=== PATIENT | male | born 1950 | race Caucasian/White ===

== ENCOUNTER 2018-10-07 10:44 | Inpatient (IN) ==
[2018-10-07] MEDS ORDERED: MoRPHine SULFATE 4 MG/ML 1 ML CARP\\VIAL IV STA (11:19)
[2018-10-07] MEDS ORDERED: SODIUM CHLORIDE 0.9% 500 ML IV SCH (11:30)
[2018-10-07 11:51] LABS: iSTAT Hemoglobin 14.3 g/dl (14.0-18.0); iSTAT Ionized Calcium 1.15 mmol/l (1.12-1.32); iSTAT Potassium 3.7 mEq/L (3.3-5.0)
[2018-10-07] MEDS ORDERED: IOVERSOL 100ml IV PRN (12:07)
[2018-10-07 12:08] LABS: Albumin Level 3.4 gm/dl (3.4-5.0); Calcium 8.5 mg/dl (8.5-10.1); Creatinine Clr Calc Pharmacy 92.1 ml/min; Est GFR (African American) 89.2; Potassium 3.6 mmol/L (3.5-5.1)
[2018-10-07 12:11] LABS: Albumin Globulin Ratio 0.9 (0.9-2); Bilirubin,Total 0.7 mg/dl (0.2-1); Globulin 3.9 gm/dl (2.5-4.0); Total Protein 7.3 gm/dl (6.4-8.2)
[2018-10-07 12:19] LABS: Basophils # (auto) 0.01 K/uL (0-0.2); Basophils % (auto) 0.1 %; Eosinophils # (auto) 0.04 K/uL (0-0.5); Eosinophils % (auto) 0.4 %; Hematocrit (blood only) 42.3 % (42-52); Hemoglobin 14.2 g/dL (14.0-18.0); Immature Granulocytes # (auto) 0.01 K/uL (0.00-0.02); Immature Granulocytes % (auto) 0.1 %; Lymphocytes # (auto) 1.53 K/uL (1.2-3.4); Lymphocytes % (auto) 16.3 %; Mean Corpuscular Hgb Conc 33.6 g/dL (32-36); Mean Corpuscular Volume 96.4 fL (80-100); Mean Platelet Volume 10.9 fL (7.4-10.4); Monocytes # (auto) 0.63 K/uL (0.11-0.59); Monocytes % (auto) 6.7 %; Neutrophils # (auto) 7.14 K/uL (1.4-6.5); Neutrophils % (auto) 76.4 %; Platelet Count 224 K/uL (130-400); RDW Coefficient of Variation 13.8 % (11.5-14.5); RDW Standard Deviation 49.1 fL (36.4-46.3); Red Blood Count 4.39 M/uL (4.7-6.1); White Blood Count 9.36 K/uL (4.8-10.8)
--- NOTE | 2018-10-07 12:21 | CT Scan Report ---
CT head/brain wo con CLINICAL HISTORY: Head pain status post trauma COMPARISON STUDY: No previous studies for comparison. TECHNIQUE: Axial CT of the brain is performed from the vertex to the skull base. IV contrast was not administered for this examination. A dose lowering technique was utilized adhering to the principles of ALARA. CT DOSE: FINDINGS: No intra or extra-axial mass lesions are visualized. There is no CT evidence of acute cortical infarc tion. There is no evidence of midline shift. There is no acute hemorrhage. No calvarial fractures ar e visualized. There are moderate white matter hypodensities likely on a small vessel basis. There is an old lacunar infarct within the left frontal lobe. There is no evidence of pathologic ventricular dilatation. There is no evidence of acute sinusitis IMPRESSION: No acute intracranial findings Electronically signed by: Hussain Adames M.D. 10/07/2018 12:20 PM
--- NOTE | 2018-10-07 12:23 | CT Scan Report ---
CT OF THE CERVICAL SPINE CLINICAL HISTORY: Neck pain status post trauma COMPARISON STUDY: No previous studies for comparison. CT DOSE: TECHNIQUE: CT scan of the cervical spine was performed from the skull base to the thoracic inlet. Elvie ges are reviewed in the axial, sagittal, and coronal planes. IV contrast was not administered for thi s examination. A dose lowering technique was utilized adhering to the principles of ALARA. FINDINGS: The visualized portions of the lung apices reveal no evidence of pneumothorax. The prevertebral soft tissues are normal. No fractures or subluxations are visualized. There are multilevel degenerative changes IMPRESSION: No evidence of acute fracture or traumatic subluxation. Electronically signed by: Hussain Adames M.D. 10/07/2018 12:21 PM
--- NOTE | 2018-10-07 12:30 | CT Scan Report ---
CT OF THE CHEST WITH IV CONTRAST CLINICAL HISTORY: Chest pain status post trauma COMPARISON STUDY: No previous studies for comparison. TECHNIQUE: Following the IV administration of 1611/and 22 (! 9360 09/27/2019. mL of Optiray-320, CT o f the thorax was performed from the thoracic inlet to the lung bases. Images are reviewed in the axia l, sagittal, and coronal planes. IV contrast was administered without complication. A dose lowering technique was utilized adhering to the principles of ALARA. CT DOSE: 3641.42 mGy.cm FINDINGS: Thyroid: Imaged portions of the thyroid gland are normal in appearance. Thoracic aorta: There is mild ectasia of the ascending thoracic aorta which measures 38 mm. There are no findings to indicate an aortic dissection or rupture. Pulmonary vasculature: The pulmonary trunk is normal in caliber. There are no central filling defects identified to suggest pulmonary embolus. Note that this examination was not protocoled for the evalu ation of pulmonary emboli. HEART: The heart is normal in size and configuration, without pericardial effusion. Lungs and pleural spaces: There are no significant pleural effusions. There are mild dependent atelec tatic changes. There is no pneumothorax. There is no evidence for focal pulmonary contusion. Mediastinum: There is no mediastinal lymphadenopathy. Pita: Left hilar lymph nodes are the upper limits of normal in size. Axilla: There is no evidence of pathologic axillary lymphadenopathy Upper abdomen: Partially visualized upper abdominal viscera is within normal limits. Skeletal structures: There are acute nondisplaced fractures of the right sixth, seventh, and eighth r ibs laterally. There are acute nondisplaced fractures of the left fourth through eighth ribs laterall y IMPRESSION: 1. Acute nondisplaced fractures of the right sixth seventh and eighth ribs 2. Acute nondisplaced fractures of the left fourth through eighth ribs 3. No evidence of pneumothorax 4. No evidence of focal pulmonary contusion 5. No evidence of thoracic aortic injury Electronically signed by: Hussain Adames M.D. 10/07/2018 12:28 PM
--- NOTE | 2018-10-07 12:34 | CT Scan Report ---
CT OF THE ABDOMEN AND PELVIS WITH CONTRAST CLINICAL HISTORY: Fall. COMPARISON STUDY: None. TECHNIQUE: Following IV administration of 93 mL of Optiray-320, axial images of the abdomen and pelvi s were obtained from the lung bases to the proximal femurs. Images were reviewed in the axial, sagitt al, and coronal planes. IV contrast was administered without complication. Automated exposure contro l was utilized for the study. A dose lowering technique was utilized adhering to the principles of A HAVEN. FINDINGS: Please note that the chest CT will be reported separately. Acute nondisplaced fractures of multiple bilateral anterolateral ribs are better depicted on the chest CT. No hemoperitoneum or pneum operitoneum is present. There is no evidence for traumatic injury to the liver, spleen, adrenal gland s, kidneys or the pancreas. There is no peripancreatic or pericholecystic infiltration. Caliber and w all thickness of small and large bowel is normal. The appendix is unremarkable. Previous left acetabu lar internal fixation is noted. There is no acute fracture within the pelvis or hips. There is a righ t thigh lipoma. There are bilateral fat-containing inguinal hernias. Mild bladder wall thickening is probably chronic. The infrarenal abdominal aorta is ectatic, measuring 2.7 cm in caliber. There is mo derate plaque. IMPRESSION: 1. No acute traumatic findings within the abdomen or pelvis. 2. Acute nondisplaced fractures of multiple bilateral anterolateral ribs which are better depicted on the chest CT. Electronically signed by: Ricardo Gunn M.D. 10/07/2018 12:32 PM
--- NOTE | 2018-10-07 14:08 | History & Physical Report ---
Date of Service October 07, 2018 Assessment & Plan (1) Multiple fractures of ribs of both sides: Pt with fall from ladder approx 8-10 feet high yesterday. Since with bilateral rib pain, increased with inspiration and movement In ER vitals stable, pulse ox: 93-95% on RA. Hgb: 14, BUN: 12, Cr: 1.0. CT head: no acute changes. CT C Spine: no acute fractures. CT Chest: nondisplaced fractures of right 6,7,8 ribs and nondisplaced fractures of left 4- 8 ribs. No pneumothorax or pulmonary contusion, no thoracic injury. CT abd/pelvis: no acute abdominal or pelvis findings. Spoke with radiologist to have look at lumbar spine images also and reports does not appear to have acute fracture In ER was given 500ml NSS and morphine 4mg with some relief of pain -observation for pain control -oxycodone prn pain, morphine for breakthrough pain -incentive spirometer -supplemental oxygen if needed (2) COPD (chronic obstructive pulmonary disease): Hx COPD. Did not use inhalers today. Pt reports chronic wheezing and does not feel has worsening SOB or wheezing Pt with wheezing present today, will see if clears with nebs -duonebs -will hold home spiriva since on duonebs -monitor (3) HTN (hypertension): -continue losartan, metoprolol (4) Dyslipidemia: -continue atorvastatin (5) PVD (peripheral vascular disease): -continue ASA, plavix (6) Lymphedema: Reported chronic BLE edema and lymphedema Appears euvolemic -continue lasix (7) Anxiety and depression: -continue bupropion, sertraline DVT Prophylaxis -SCDs Full Code as per discussion with pt Follows with Dr [facility] for routine care Pt was seen with Dr Gomez. See addendum History of Present Illness Chief Complaint: Fall and bilateral rib pain Primary Care Provider: Malachi Steve Pt is 68 y/o M with PMH COPD, HTN, dyslipidemia, PVD, chronic lower extremity edema and lymphedema, neuropathy, spinal stenosis, anxiety, depression presented to ER with complaint of fall yesterday. Patient states was on a ladder approximately 8-10 feet when he fell backwards. Patient states that head however denies any LOC. Patient states after fall had a hard time catching his breath for a couple minutes. He has bilateral rib pain with increased pain with inspiration. Doesn't feel more short of breath than usual. Patient also complains of posterior neck pain. Pt reports chronic low back pain. He was using his home meloxicam without much relief. Denies fever/chills, diaphoresis, N/V/D/C, ARENAS, dizziness, syncope, vision changes, extremity pain, loss ROM extremities, palpitations, cough, sore throat, choking, otalgia, rhinorrhea, abdominal pain, paresthesias, extremity weakness, increased extremity edema, rashes, dysuria, hematuria, urinary retention, loss control of bowel/bladder. Allergies Allergy/AdvReac Type Severity Reaction Status Date / Time lisinopril Allergy Unknown Rash Verified 10/07/18 14:40 Penicillins Allergy Unknown UNKNOWN Unverified 10/07/18 13:24 tramadol AdvReac Unknown Nausea Verified 10/07/18 14:40 Home Medications Home Medications Medication Instructions Recorded Confirmed Type albuterol sulfate [Ventolin HFA] 2 puff INHALATION QID PRN 10/07/18 10/07/18 History aspirin 81 mg PO DAILY 10/07/18 10/07/18 History atorvastatin 40 mg PO HS 10/07/18 10/07/18 History bupropion HCl [Wellbutrin XL] 300 mg PO QAM 10/07/18 10/07/18 History clopidogrel [Plavix] 75 mg PO QAM 10/07/18 10/07/18 History furosemide [Lasix] 40 mg PO BID 10/07/18 10/07/18 History losartan 25 mg PO QAM 10/07/18 10/07/18 History meloxicam 15 mg PO QAM 10/07/18 10/07/18 History metoprolol tartrate 12.5 mg PO BID 10/07/18 10/07/18 History multivitamin 1 cap PO QAM 10/07/18 10/07/18 History potassium chloride 20 meq PO QAM 10/07/18 10/07/18 History ranitidine HCl 150 mg PO BID 10/07/18 10/07/18 History sertraline 200 mg PO QAM 10/07/18 10/07/18 History tiotropium bromide [Spiriva with 1 cap INHALATION QAM 10/07/18 10/07/18 History HandiHaler] trazodone 50 mg PO HS 10/07/18 10/07/18 History vit C-vit Y-ataknt-wimh-lutein 1 cap PO BID 10/07/18 10/07/18 History [PreserVision Lutein] Past Med/Surg History Medical History Tobacco use (Chronic) History of pelvic fracture (Resolved) Anxiety and depression (Chronic) Spinal stenosis (Chronic) Neuropathy (Chronic) Lymphedema (Chronic) PVD (peripheral vascular disease) (Chronic) COPD (chronic obstructive pulmonary disease) (Chronic) Dyslipidemia (Chronic) HTN (hypertension) (Chronic) HTN (hypertension) (Chronic) Pelvic fracture (Resolved) Surgical History History of hemorrhoidectomy (Chronic) History of tonsillectomy and adenoidectomy (Chronic) Family History Other Coronary heart disease Diabetes Hypertension Stroke Social History Preferred Language: [place]i Communication Ability: Effective Beliefs That Will Affect Care: None Current Living Situation: Spouse Other Information That Helps Us Care for You: No Feels Safe at Home: Yes Safety Concerns: Feels Safe At This Time Smoking Status: Current every day smoker Hx Alcohol Use: Yes Hx Substance Use: No Review of Systems All systems reviewed & are unremarkable except as noted in HPI & below Physical Exam Vital Signs (Past 24 Hours): Last Vital Signs Temp 36.4 C L 10/07/18 10:50 Pulse 54 L 10/07/18 13:42 Resp 20 10/07/18 13:42 BP 139/85 10/07/18 13:42 Pulse Ox 93 10/07/18 13:42 Physical Exam: General: mild distress with deep inspiration and movement causing bilateral rib pain, obese Head: normocephalic, atraumatic Eyes: PERRL, EOM's intact, conjunctiva non-injected, anicteric ENT: hard of hearing, normal inspection external ears, nose, mucous membranes moist Neck: supple, trachea midline, non-tender to palpation, ROM intact Lungs: no respiratory distress, R: 20, 93-95% on RA, +scattered wheezing CV: RRR, no murmur Abd: normal BS, soft, non-tender Back: no spinous process tenderness to palpation, negative straight leg raising Ext: Bilateral upper extremities without tenderness and ROM intact. Bilateral lower extremities without tenderness and ROM intact, no calf tenderness, mild edema bilateral lower extremities. distal pulses intact, brisk capillary refill, sensation to light touch intact Neuro: A&O x 3, no focal deficits noted, normal affect Skin: warm, dry Results & Data Laboratory Results Short CBC 10/07/18 Range/Units 11:30 WBC 9.36 (4.8-10.8) K/uL Hgb 14.2 (14.0-18.0) g/dL Hct 42.3 (42-52) % Plt Count 224 (130-400) K/uL BMP 10/07/18 11:30 Sodium 138 Potassium 3.6 Chloride 104 Carbon Dioxide 30 BUN 12 Creatinine 1.00 Glucose 108 H Calcium 8.5 Liver Function 10/07/18 Range/Units 11:30 Total Bilirubin 0.7 (0.2-1) mg/dl AST 24 (15-37) U/L ALT 32 (12-78) U/L Alkaline Phosphatase 117 (45-117) U/L Albumin 3.4 (3.4-5.0) gm/dl Diagnostic Findings CT HEAD: IMPRESSION: No acute intracranial findings CT C-SPINE: IMPRESSION: No evidence of acute fracture or traumatic subluxation. CT CHEST: IMPRESSION: 1. Acute nondisplaced fractures of the right sixth seventh and eighth ribs 2. Acute nondisplaced fractures of the left fourth through eighth ribs 3. No evidence of pneumothorax 4. No evidence of focal pulmonary contusion 5. No evidence of thoracic aortic injury CT ABD/PELVIS: IMPRESSION: 1. No acute traumatic findings within the abdomen or pelvis. 2. Acute nondisplaced fractures of multiple bilateral anterolateral ribs which are better depicted on the chest CT. ECG Rate (beats per minute): 60 Rhythm: sinus rhythm Findings: + 1st degree AV block Supervising Physician Co-Signing Physician Notes Care coordinated with Zeinab MCDONALD. Agree with able note. Patient seen and examined. Please refer to her notes for full details. Vital signs reviewed. Physical exam: General exam: Alert and oriented. Not in acute distress. CVS: S1 and S2 heard, regular rate and rhythm, no murmurs. RS: Clear to auscultation, mild b/l wheezing no crackles. ABD: Soft, bowel sounds present, nontender, no distention. CUT OFF SAW TENDER METAL: Nonfocal. EXT: No edema, no erythema. Labs: Reviewed. Assessment and plan:68M comes with fall from ladder yesterday and pain in the chest more with deep breath and back and hip pains.Saturating ok and hemodynamically stable. Fall mechanical multiple rib fx no pneumothorax or lung injury pain control incentive spirometry pt/ot observation Hx of copd stable nebs prn Other diagnosis and plan of care as per []. French gill MD. (1) Multiple fractures of ribs of both sides Encounter type: initial encounter Fracture type: closed Qualified Code(s): S22.43XA - Multiple fractures of ribs, bilateral, initial encounter for closed fracture
--- NOTE | 2018-10-07 14:10 | Emergency Department Note ---
Entered by Khushbu Mathew acting as a scribe for History of Present Illness General Chief complaint: Neck Injury/Pain Time Seen by Provider: 10/07/18 11:10 Source: patient History of Present Illness Provider complaint: fall Onset (ago): day(s) (yesterday afternoon) Location: left and right Pain Consistency: + other (episode) Maximum Pain Intensity: 5 Quality: + other (fall) Associated symptoms: + other (neck pain, extremity weakness, fatigue, chest pain, abdominal pain. Denies: loss of consciousness, headache, vision difficulties, dental pain) The patient is a 68 year old male who presents to the Emergency Room with compla ints of an episode of a fall beginning yesterday afternoon. He reports he lost his footing while on a ladder, and fell about 8-10 ft. The patient states he landed backwards and hit his head. The patient denies loss of consciousness, headache, vision difficulties, or dental pain. He reports neck pain and weakness of his extremities. The patient states he is easily fatigued since the fall. He notes pain on both sides of his chest. The patient reports abdominal pain. Home Medications Home Medications Medication Instructions Recorded Confirmed Type albuterol sulfate [Ventolin HFA] 2 puff INHALATION QID PRN 10/07/18 10/07/18 History aspirin 81 mg PO DAILY 10/07/18 10/07/18 History atorvastatin 40 mg PO HS 10/07/18 10/07/18 History bupropion HCl [Wellbutrin XL] 300 mg PO QAM 10/07/18 10/07/18 History clopidogrel [Plavix] 75 mg PO QAM 10/07/18 10/07/18 History furosemide [Lasix] 40 mg PO BID 10/07/18 10/07/18 History losartan 25 mg PO QAM 10/07/18 10/07/18 History meloxicam 15 mg PO QAM 10/07/18 10/07/18 History metoprolol tartrate 12.5 mg PO BID 10/07/18 10/07/18 History multivitamin 1 cap PO QAM 10/07/18 10/07/18 History potassium chloride 20 meq PO QAM 10/07/18 10/07/18 History ranitidine HCl 150 mg PO BID 10/07/18 10/07/18 History sertraline 200 mg PO QAM 10/07/18 10/07/18 History tiotropium bromide [Spiriva with 1 cap INHALATION QAM 10/07/18 10/07/18 History HandiHaler] trazodone 50 mg PO HS 10/07/18 10/07/18 History vit C-vit V-khzknz-xdpe-lutein 1 cap PO BID 10/07/18 10/07/18 History [PreserVision Lutein] Allergies Allergy/AdvReac Type Severity Reaction Status Date / Time lisinopril Allergy Unknown Rash Verified 10/07/18 14:40 Penicillins Allergy Unknown UNKNOWN Unverified 10/07/18 13:24 tramadol AdvReac Unknown Nausea Verified 10/07/18 14:40 Past Med/Surg History Medical History Tobacco use (Chronic) History of pelvic fracture (Resolved) Anxiety and depression (Chronic) Spinal stenosis (Chronic) Neuropathy (Chronic) Lymphedema (Chronic) PVD (peripheral vascular disease) (Chronic) COPD (chronic obstructive pulmonary disease) (Chronic) Dyslipidemia (Chronic) HTN (hypertension) (Chronic) HTN (hypertension) (Chronic) Pelvic fracture (Resolved) Surgical History History of hemorrhoidectomy (Chronic) History of tonsillectomy and adenoidectomy (Chronic) Family History Other Coronary heart disease Diabetes Hypertension Stroke Social History Feels Safe at Home: Yes Smoking Status: Current every day smoker Hx Alcohol Use: Yes Hx Substance Use: Yes Review of Systems See HPI for pertinent positives & negatives. and A total of 10 systems reviewed and were otherwise negative Physical Exam Vital Signs Vital Signs - 24 hr 10/07/18 10:50 10/07/18 11:31 10/07/18 13:42 Temperature 36.4 C L Temperature Source Oral Sepsis Recent Fever Within 48 Hours No Sepsis Action Taken by Nursing No Action Required Pulse Rate 65 Pulse Rate [Right Finger] 65 54 L Pulse Rhythm Regular Pulse Rhythm [Right Finger] Regular Pulse Strength Normal Pulse Strength [Right Finger] Normal Respiratory Rate 22 20 Respiratory Effort / Characteristics Short of Breath Respiratory Depth Normal Respiratory Pattern Regular Blood Pressure 150/81 H Blood Pressure [Right Arm] 150/81 H 139/85 Blood Pressure Mean 104 Blood Pressure Mean [Right Arm] 104 103 Blood Pressure Position Lying Blood Pressure Position [Right Arm] Lying Pulse Oximetry 93 95 93 Oxygen Delivery Method Room Air Room Air Room Air 10/07/18 14:40 10/07/18 14:57 10/07/18 16:06 Temperature Temperature Source Oral Sepsis Recent Fever Within 48 Hours Sepsis Action Taken by Nursing Pulse Rate Pulse Rate [Right Finger] 56 L 59 L 59 L Pulse Rhythm Pulse Rhythm [Right Finger] Pulse Strength Pulse Strength [Right Finger] Respiratory Rate 20 20 21 Respiratory Effort / Characteristics Respiratory Depth Respiratory Pattern Blood Pressure Blood Pressure [Right Arm] 137/77 121/77 141/84 H Blood Pressure Mean Blood Pressure Mean [Right Arm] 97 91 103 Blood Pressure Position Blood Pressure Position [Right Arm] Sitting Pulse Oximetry 96 94 90 Oxygen Delivery Method Room Air Room Air Room Air General: Well developed well nourished, appears uncomfortable, breathing comfortably on room air. Normal speech. Glascow coma score of 15 HEENT: Normal cephalic atraumatic. Pupils are equal round and reactive to light. Extraocular movements are intact. Oropharynx is pink with moist mucous membranes. No swelling of the mouth lips or tongue. No hyphema. No blood from the nose or septal hematoma. Mid face is stable. No dental trauma or malocclus ion. Neck: No meningeal signs or stiffness. No midline tenderness. No Stridor. Chest: Clear to auscultation bilaterally. No wheezes or rhonchi. No increased work of breathing. No subcutaneous air. No external signs of trauma. Tender anteriorly in right and left chest without crepitus Heart: Regular rate and rhythm without murmurs or gallops. Abdomen: Soft nontender, nondistended without rebound guarding or rigidity. No seatbelt dna or external signs of trauma Extremities: No cyanosis clubbing or edema. No calf tenderness or asymmetry. Spine/Back. Non tender to palpation. No CVA tenderness. Skin: Good turgor without rashes. Neurologic exam: Cranial nerves two through 12 are intact. Motor and sensation are intact and symmetrical throughout. Normal level of consciousness Course 1112: Past medical records reviewed. The patient was evaluated in room C5, and a complete history and physical examination were performed. 1220: Upon reevaluation, the patient is resting. I discussed test results. They verbalized agreement with the treatment plan. 1249: I reviewed the patient's case with Mandi Aldana PA-C, [facility] hospitalist. She will evaluate the patient for further management. Consultations Consultation #1[facility]: 12:49 Administered Medications Ioversol (Optiray 320 100ml) 93 ml IV ONCE PRN PRN Reason: Interaction Checking Stop: 10/11/18 12:06 Last Admin: 10/07/18 12:07 Dose: 93 ml Documented by: [id number] Discontinued Medications Sodium Chloride (Nss) 500 mls @ 999 mls/hr IV .Q31M NANCY Stop: 10/07/18 12:00 Last Infusion: 10/07/18 12:25 Dose: 0 mls/hr Documented by: [id number] Admin: 10/07/18 11:47 Dose: 999 mls/hr Documented by: [id number] Morphine Sulfate (Morphine Sulfate) 4 mg IV NOW STA Stop: 10/07/18 11:20 Last Admin: 10/07/18 11:47 Dose: 4 mg Documented by: [id number] Medical Decision Making Differential Diagnosis Etiologies considered include rib fracture, pneumothorax, intracranial hemorrhage, cervical spine fracture, traumatic injuries. Medical Records Attestation: I reviewed the patient's medical records. Home Medications Current Medication List: was personally reviewed by me Laboratory Data Attestation: I reviewed the patient's lab results. Result diagrams: 10/07/18 11:30 10/07/18 11:30 Lab Results 10/07/18 10/07/18 10/07/18 Range/Units 11:30 11:30 11:39 WBC 9.36 (4.8-10.8) K/uL RBC 4.39 L (4.7-6.1) M/uL Hgb 14.2 (14.0-18.0) g/dL POC Hgb 14.3 (14.0-18.0) g/dl Hct 42.3 (42-52) % POC Hct 42 (42-52) % MCV 96.4 (80-100) fL MCH 32.3 (25-34) pg MCHC 33.6 (32-36) g/dL RDW Std Deviation 49.1 H (36.4-46.3) fL RDW Coeff of Britton 13.8 (11.5-14.5) % Plt Count 224 (130-400) K/uL MPV 10.9 H (7.4-10.4) fL Immature Gran % (Auto) 0.1 % Neut % (Auto) 76.4 % Lymph % (Auto) 16.3 % [place]ern % (Auto) 6.7 % Eos % (Auto) 0.4 % Baso % (Auto) 0.1 % Immature Gran # (Auto) 0.01 (0.00-0.02) K/uL Neut # (Auto) 7.14 H (1.4-6.5) K/uL Lymph # (Auto) 1.53 (1.2-3.4) K/uL [place]ern # (Auto) 0.63 H (0.11-0.59) K/uL Eos # (Auto) 0.04 (0-0.5) K/uL Baso # (Auto) 0.01 (0-0.2) K/uL POC Sodium 141 (135-144) mEq/L Sodium 138 (136-145) mmol/L POC Potassium 3.7 (3.3-5.0) mEq/L Potassium 3.6 (3.5-5.1) mmol/L POC Chloride 100 L (101-112) mEq/L Chloride 104 (98-107) mmol/L Carbon Dioxide 30 (21-32) mmol/L POC Total CO2 28 (24-31) mEq/l Anion Gap 4.0 (3-11) POC Anion Gap 18.0 (16-25) mmol/L POC BUN 11 (7-18) mg/dl BUN 12 (7-18) mg/dl Creatinine 1.00 (0.6-1.4) mg/dl POC Creatinine 1.0 (0.6-1.3) mg/dl Est Cr Clr Drug Dosing 92.1 ml/min Est GFR ( Amer) 89.2 Est GFR (Non-Af Amer) 77.0 BUN/Creatinine Ratio 12.0 (10-20) Glucose 108 H (70-99) mg/dl POC Glucose (other) 112 H (70-99) mg/dl Calcium 8.5 (8.5-10.1) mg/dl POC Ioniz Calcium [place] 1.15 (1.12-1.32) mmol/l Total Bilirubin 0.7 (0.2-1) mg/dl AST 24 (15-37) U/L ALT 32 (12-78) U/L Alkaline Phosphatase 117 (45-117) U/L POC Troponin I (0-0.045) ng/ml Total Protein 7.3 (6.4-8.2) gm/dl Albumin 3.4 (3.4-5.0) gm/dl Globulin 3.9 (2.5-4.0) gm/dl Albumin/Globulin Ratio 0.9 (0.9-2) 10/07/18 Range/Units 11:41 WBC (4.8-10.8) K/uL RBC (4.7-6.1) M/uL Hgb (14.0-18.0) g/dL POC Hgb (14.0-18.0) g/dl Hct (42-52) % POC Hct (42-52) % MCV (80-100) fL MCH (25-34) pg MCHC (32-36) g/dL RDW Std Deviation (36.4-46.3) fL RDW Coeff of Britton (11.5-14.5) % Plt Count (130-400) K/uL MPV (7.4-10.4) fL Immature Gran % (Auto) % Neut % (Auto) % Lymph % (Auto) % [place]ern % (Auto) % Eos % (Auto) % Baso % (Auto) % Immature Gran # (Auto) (0.00-0.02) K/uL Neut # (Auto) (1.4-6.5) K/uL Lymph # (Auto) (1.2-3.4) K/uL [place]ern # (Auto) (0.11-0.59) K/uL Eos # (Auto) (0-0.5) K/uL Baso # (Auto) (0-0.2) K/uL POC Sodium (135-144) mEq/L Sodium (136-145) mmol/L POC Potassium (3.3-5.0) mEq/L Potassium (3.5-5.1) mmol/L POC Chloride (101-112) mEq/L Chloride (98-107) mmol/L Carbon Dioxide (21-32) mmol/L POC Total CO2 (24-31) mEq/l Anion Gap (3-11) POC Anion Gap (16-25) mmol/L POC BUN (7-18) mg/dl BUN (7-18) mg/dl Creatinine (0.6-1.4) mg/dl POC Creatinine (0.6-1.3) mg/dl Est Cr Clr Drug Dosing ml/min Est GFR ( Amer) Est GFR (Non-Af Amer) BUN/Creatinine Ratio (10-20) Glucose (70-99) mg/dl POC Glucose (other) (70-99) mg/dl Calcium (8.5-10.1) mg/dl POC Ioniz Calcium [place] (1.12-1.32) mmol/l Total Bilirubin (0.2-1) mg/dl AST (15-37) U/L ALT (12-78) U/L Alkaline Phosphatase (45-117) U/L POC Troponin I < 0.03 (0-0.045) ng/ml Total Protein (6.4-8.2) gm/dl Albumin (3.4-5.0) gm/dl Globulin (2.5-4.0) gm/dl Albumin/Globulin Ratio (0.9-2) Imaging Data Radiologist's Impression: Radiology results as stated below per my review and the radiologist's interpretation: CT head/brain wo con CLINICAL HISTORY: Head pain status post trauma COMPARISON STUDY: No previous studies for comparison. TECHNIQUE: Axial CT of the brain is performed from the vertex to the skull base. IV contrast was not administered for this examination. A dose lowering technique was utilized adhering to the principles of ALARA. CT DOSE: FINDINGS: No intra or extra-axial mass lesions are visualized. There is no CT evidence of acute cortical infarction. There is no evidence of midline shift. There is no acute hemorrhage. No calvarial fractures are visualized. There are moderate white matter hypodensities likely on a small vessel basis. There is an old lacunar infarct within the left frontal lobe. There is no evidence of pathologic ventricular dilatation. There is no evidence of acute sinusitis IMPRESSION: No acute intracranial findings Electronically signed by: Hussain Adames M.D. 10/07/2018 12:[address] OF THE CHEST WITH IV CONTRAST CLINICAL HISTORY: Chest pain status post trauma COMPARISON STUDY: No previous studies for comparison. TECHNIQUE: Following the IV administration of 1611/and 22 (! [id number] 09/27/2019. mL of Optiray-320, CT of the thorax was performed from the thoracic inlet to the lung bases. Images are reviewed in the axial, sagittal, and coronal planes. IV contrast was administered without complication. A dose lowering technique was utilized adhering to the principles of ALARA. CT DOSE: 3641.42 mGy.cm FINDINGS: Thyroid: Imaged portions of the thyroid gland are normal in appearance. Thoracic aorta: There is mild ectasia of the ascending thoracic aorta which measures 38 mm. There are no findings to indicate an aortic dissection or rupture. Pulmonary vasculature: The pulmonary trunk is normal in caliber. There are no central filling defects identified to suggest pulmonary embolus. Note that this examination was not protocoled for the evaluation of pulmonary emboli. HEART: The heart is normal in size and configuration, without pericardial effusion. Lungs and pleural spaces: There are no significant pleural effusions. There are mild dependent atelectatic changes. There is no pneumothorax. There is no evidence for focal pulmonary contusion. Mediastinum: There is no mediastinal lymphadenopathy. Pita: Left hilar lymph nodes are the upper limits of normal in size. Axilla: There is no evidence of pathologic axillary lymphadenopathy Upper abdomen: Partially visualized upper abdominal viscera is within normal limits. Skeletal structures: There are acute nondisplaced fractures of the right sixth, seventh, and eighth ribs laterally. There are acute nondisplaced fractures of the left fourth through eighth ribs laterally IMPRESSION: 1. Acute nondisplaced fractures of the right sixth seventh and eighth ribs 2. Acute nondisplaced fractures of the left fourth through eighth ribs 3. No evidence of pneumothorax 4. No evidence of focal pulmonary contusion 5. No evidence of thoracic aortic injury Electronically signed by: Hussain Adames M.D. 10/07/2018 12:[address] OF THE CERVICAL SPINE CLINICAL HISTORY: Neck pain status post trauma COMPARISON STUDY: No previous studies for comparison. CT DOSE: TECHNIQUE: CT scan of the cervical spine was performed from the skull base to the thoracic inlet. Images are reviewed in the axial, sagittal, and coronal planes. IV contrast was not administered for this examination. A dose lowering technique was utilized adhering to the principles of ALARA. FINDINGS: The visualized portions of the lung apices reveal no evidence of pneumothorax. The prevertebral soft tissues are normal. No fractures or subluxations are visualized. There are multilevel degenerative changes IMPRESSION: No evidence of acute fracture or traumatic subluxation. Electronically signed by: Hussain Adames M.D. 10/07/2018 12:[address] OF THE ABDOMEN AND PELVIS WITH CONTRAST CLINICAL HISTORY: Fall. COMPARISON STUDY: None. TECHNIQUE: Following IV administration of 93 mL of Optiray-320, axial images of the abdomen and pelvis were obtained from the lung bases to the proximal femurs. Images were reviewed in the axial, sagittal, and coronal planes. IV contrast was administered without complication. Automated exposure control was utilized for the study. A dose lowering technique was utilized adhering to the principles of ALARA. FINDINGS: Please note that the chest CT will be reported separately. Acute nondisplaced fractures of multiple bilateral anterolateral ribs are better depicted on the chest CT. No hemoperitoneum or pneumoperitoneum is present. There is no evidence for traumatic injury to the liver, spleen, adrenal glands, kidneys or the pancreas. There is no peripancreatic or pericholecystic infiltration. Caliber and wall thickness of small and large bowel is normal. The appendix is unremarkable. Previous left acetabular internal fixation is noted. There is no acute fracture within the pelvis or hips. There is a right thigh lipoma. There are bilateral fat-containing inguinal hernias. Mild bladder wall thickening is probably chronic. The infrarenal abdominal aorta is ectatic, measuring 2.7 cm in caliber. There is moderate plaque. IMPRESSION: 1. No acute traumatic findings within the abdomen or pelvis. 2. Acute nondisplaced fractures of multiple bilateral anterolateral ribs which are better depicted on the chest CT. Electronically signed by: Ricardo Gunn M.D. 10/07/2018 12:32 PM ECG Data Attestation: I personally reviewed and interpreted this ECG as follows: Indication: chest pain Rate (beats per minute): 60 Rhythm: normal sinus Findings: + 1st degree AV block; no PAC, no PVC, no ST depression and no ST elevation Comparison ECG Date: no prior available Blood Pressure Blood Pressure Findings: Elevated blood pressure Blood Pressure Disposition: Referred to patients primary care provider Head Trauma GCS Score: 15 MDM Narrative This patient comes in as described above. He was placed in room C5. He is here for treatment evaluation after falling off a ladder yesterday. He fell backwards. he has anterior rib pain bilaterally. he also has some neck pain. he did hit his head and has a mild headache but did not have any loss of consc iousness. There was no syncope or any recent fall off a ladder and it sounds like it was a mechanical fall. He has no significant abdominal pain. No numbness, weakness, or neurologic deficits. No low back pain. IV access established. He did appear pretty uncomfortable initially was given morphine 4 mg IV. he appears much more comfortably after this. EKG was obtained and shows no acute ischemic changes or ectopy. I did do V[place]la trauma scans including head, neck, chest ,abdomen, and pelvis. The head and neck were unremarkable as was the abdomen and pelvis. He does have multiple rib fractures which are nondisplaced with 3 on the right and 5 on the left. There is no underlying pneumothorax or pulmonary contusion. I am concerned that he does have a history of COPD and I do think he needs to be admitted/observe for pain management. I have consulted the [facility] hospitalist group as they are on for medical unassigned as his primary doctor is at the [place]. The patient and his significant other in agreement with this plan and he was admitted/observed. Impression & Plan Multiple fractures of ribs of both sides, COPD (chronic obstructive pulmonary disease), Chest pain, Acute strain of neck muscle Discharge Plan Visit Data *Final* Discharge Date/Time: 10/07/18 15:26 Chief Complaint: Neck Injury/Pain Other Complaint: Chest Pain Rib Injury/Pain ED Provider: Malachi Suárez Discharge Problem: Multiple fractures of ribs of both sides, COPD (chronic obstructive pulmonary disease), Chest pain, Acute strain of neck muscle Patient Disposition: Admitted As Inpatient Discharge Instructions Interventions: ED Discharge Assessment Last Done: 10/07/18 15:26 The scribe's documentation has been prepared under my direction and personally reviewed by me in its entirety. I confirm that the note above accurately reflects all work, treatment, procedures, and medical decision making performed by me.
[2018-10-07] MEDS ORDERED: ONDANSETRON INJ 2 MG/ML 2 ML VIAL IV PRN (16:23)
[2018-10-07] MEDS ORDERED: MoRPHine SULFATE 2 MG/ML CARP IV PRN (16:23)
[2018-10-07] MEDS: ALBUT/IPRATROP 3MG/0.5MG NEB 3 ML VIAL NEB SCH ×2 (17:15→18:00)
[2018-10-07] MEDS: OXYCODONE HCL IR 5 MG TAB (IMMEDIATE RELEASE) PO PRN (20:52)
[2018-10-07] MEDS: FUROSEMIDE 40 MG TAB PO SCH (20:53)
[2018-10-07] MEDS: CEROVITE ADV FORMULA TAB PO SCH (20:55)
[2018-10-07] MEDS: ATORVASTATIN 40 MG TAB PO SCH (20:55)
[2018-10-07 20:58] LABS: Appearance Urine Clear (Clear); Bilirubin Urine Negative (Negative); Blood Urine Negative (Negative); Color Urine Dark Yellow; Glucose Urine UA Negative (Negative); Ketones Urine Trace (Negative); Leukocyte Esterase Urine Negative (Negative); Nitrite Urine Negative (Negative); Protein Urine Negative (Negative); Specific Gravity Urine > 1.045 (1.000-1.030); Urobilinogen Urine Negative (Negative); pH Urine 5.5 (4.5-7.5)
[2018-10-07] MEDS: METOPROLOL TARTRATE 25 MG TAB PO SCH (20:58)
[2018-10-07] MEDS: TRAZODONE HCL 50 MG TAB PO SCH (21:49)
[2018-10-08] MEDS: OXYCODONE HCL IR 5 MG TAB (IMMEDIATE RELEASE) PO PRN ×3 (04:04→17:30)
[2018-10-08] MEDS: FUROSEMIDE 40 MG TAB PO SCH ×2 (07:36→17:28)
[2018-10-08] MEDS: LOSARTAN POTASSIUM 25 MG TAB PO SCH (07:36)
[2018-10-08] MEDS: BuPROPion XL 150 MG TABCR PO SCH (07:36)
[2018-10-08] MEDS: SERTRALINE HCL 100 MG TABLET PO SCH (07:37)
[2018-10-08] MEDS: ASPIRIN 81 MG ECTAB PO SCH (07:37)
[2018-10-08] MEDS: MULTIVITAMIN TAB PO SCH (07:37)
[2018-10-08] MEDS: CLOPIDOGREL BISULFATE 75 MG TAB PO SCH (07:38)
[2018-10-08] MEDS: METOPROLOL TARTRATE 25 MG TAB PO SCH ×2 (07:38→20:06)
[2018-10-08] MEDS: POTASSIUM CHLORIDE 20 MEQ TABCR PO SCH (07:39)
[2018-10-08] MEDS: ACETAMINOPHEN 325 MG TAB PO PRN (07:41)
[2018-10-08] MEDS: ALBUT/IPRATROP 3MG/0.5MG NEB 3 ML VIAL NEB SCH ×4 (07:44→20:36)
[2018-10-08 08:11] LABS: Hematocrit (blood only) 41.1 % (42-52); Hemoglobin 13.8 g/dL (14.0-18.0); Mean Corpuscular Hgb Conc 33.6 g/dL (32-36); Mean Corpuscular Volume 95.8 fL (80-100); Mean Platelet Volume 10.6 fL (7.4-10.4); Platelet Count 212 K/uL (130-400); RDW Standard Deviation 48.5 fL (36.4-46.3); Red Blood Count 4.29 M/uL (4.7-6.1); White Blood Count 8.52 K/uL (4.8-10.8)
[2018-10-08] MEDS ORDERED: TRAMADOL HCL 50 MG TABLET PO PRN (08:25)
[2018-10-08 08:38] LABS: BUN Creatinine Ratio 13.4 (10-20); Calcium 8.6 mg/dl (8.5-10.1); Creatinine Clr Calc Pharmacy 99.1 ml/min; Est GFR (African American) 97.4; Est GFR (Non-African American) 84.1; Potassium 3.6 mmol/L (3.5-5.1)
[2018-10-08] MEDS ORDERED: MAGNESIUM HYDROXIDE SUSP 30 ML UDC PO PRN (14:51)
[2018-10-08] MEDS: DOCUSATE SODIUM/SENNA 50/8.6MG TAB PO SCH (17:27)
--- NOTE | 2018-10-08 18:26 | Hospitalist Progress Note ---
Date of Service October 08, 2018 Assessment & Plan (1) Multiple fractures of ribs of both sides: Pt with fall from ladder approx 8-10 feet high yesterday. Since with bilateral rib pain, increased with inspiration and movement In ER vitals stable, pulse ox: 93-95% on RA. Hgb: 14, BUN: 12, Cr: 1.0. CT head: no acute changes. CT C Spine: no acute fractures. CT Chest: nondisplaced fractures of right 6,7,8 ribs and nondisplaced fractures of left 4- 8 ribs. No pneumothorax or pulmonary contusion, no thoracic injury. CT abd/pelvis: no acute abdominal or pelvis findings. Spoke with radiologist to have look at lumbar spine images also and reports does not appear to have acute fracture In ER was given 500ml NSS and morphine 4mg with some relief of pain Will add Ofirmev IV every 8 hours thousand milligrams for better pain control Will avoid NSAIDs as patient is taking Lasix and losartan Continue as needed oxycodone and morphine Senokot-S and milk of magnesia ordered Continue incentive spirometry Monitor closely (2) COPD (chronic obstructive pulmonary disease): Hx COPD. Patient is in mild COPD exacerbation, secondary to suboptimal bronchodilator CT chest no pneumonia or infiltrates Start Solu-Medrol 40 mg every 8 hours Continue DuoNeb every 6 hours Start Advair Continue Spiriva Continue to monitor (3) HTN (hypertension): -continue losartan, metoprolol (4) Dyslipidemia: -continue atorvastatin (5) PVD (peripheral vascular disease): -continue ASA, plavix (6) Lymphedema: Reported chronic BLE edema and lymphedema Appears euvolemic -continue lasix (7) Anxiety and depression: -continue bupropion, sertraline DVT Prophylaxis -SCDs Start Lovenox subcutaneous Full Code as per discussion with pt Follows with [facility] for routine care Disposition pending Pain management for multiple fractures and management of CV exacerbation progress Anticipate discharge to home medically stable Subjective Follow-up for multiple rib fractures Seen resting in bed, sleeping but easily awakened States he still has moderate to severe rib pain Worse with deep inspiration Denies shortness of breath but does have wheezing and cough productive of yellow sputum Sputum is chronic Denies other symptoms Physical Exam Vital Signs (Past 24 Hours): Last Vital Signs Temp 36.6 C 10/08/18 15:08 Pulse 65 10/08/18 15:24 Resp 20 10/08/18 15:24 BP 137/91 10/08/18 15:08 Pulse Ox 90 10/08/18 15:24 Physical Exam: General- oriented x 3, not in distress, speaks in sentences with mild effort but no accessory muscle use Head- atraumatic Eyes- PERRL, EOMI, anicteric ENT- oropharynx clear Neck- supple, no JVD, no adenopathy, no thyromegaly; carotids +2/2, no bruits appreciated Lungs-positive diffuse wheezing bilaterally, no crackles Heart- normal rate, regular rhythm; no murmur, no gallop, no rub appreciated Abdomen- normal bowel sounds, nondistended, soft, nontender, no masses or hepatosplenomegaly Extremities-edema right lower extremity edema, no calf tenderness; peripheral pulses intact Neuro- alert, oriented x 3; CN 2-12 grossly intact; motor 5/5 bilaterally;sensation 100% on all extremities; no other gross focal neurologic deficits Skin- warm & dry Results & Data Laboratory Results Laboratory Results - last 24 hr 10/07/18 10/08/18 10/08/18 20:40 07:27 07:27 WBC 8.52 RBC 4.29 L Hgb 13.8 L Hct 41.1 L MCV 95.8 MCH 32.2 MCHC 33.6 RDW Std Deviation 48.5 H RDW Coeff of Britton 14.0 Plt Count 212 MPV 10.6 H Sodium 139 Potassium 3.6 Chloride 104 Carbon Dioxide 28 Anion Gap 6.0 BUN 12 Creatinine 0.93 Est Cr Clr Drug Dosing 99.1 Est GFR ( Amer) 97.4 Est GFR (Non-Af Amer) 84.1 BUN/Creatinine Ratio 13.4 Glucose 102 H Calcium 8.6 Urine Color Dark Yellow Urine Appearance Clear Urine pH 5.5 Ur Specific [place] > 1.045 H Urine Protein Negative Urine Glucose (UA) Negative Urine Ketones Trace H Urine Blood Negative Urine Nitrite Negative Urine Bilirubin Negative Urine Urobilinogen Negative Ur Leukocyte Esterase Negative Hepatitis C Ab Screen 10/08/18 07:27 WBC RBC Hgb Hct MCV MCH MCHC RDW Std Deviation RDW Coeff of Britton Plt Count MPV Sodium Potassium Chloride Carbon Dioxide Anion Gap BUN Creatinine Est Cr Clr Drug Dosing Est GFR ( Amer) Est GFR (Non-Af Amer) BUN/Creatinine Ratio Glucose Calcium Urine Color Urine Appearance Urine pH Ur Specific [place] Urine Protein Urine Glucose (UA) Urine Ketones Urine Blood Urine Nitrite Urine Bilirubin Urine Urobilinogen Ur Leukocyte Esterase Hepatitis C Ab Screen Neg (1) Multiple fractures of ribs of both sides Encounter type: initial encounter Fracture type: closed Qualified Code(s): S22.43XA - Multiple fractures of ribs, bilateral, initial encounter for closed fracture (2) COPD (chronic obstructive pulmonary disease) COPD type: unspecified COPD Qualified Code(s): J44.9 - Chronic obstructive pulmonary disease, unspecified
[2018-10-08] MEDS ORDERED: methylPREDNISolone 40 MG in SYRINGE 0 ML IV SCH (18:30)
[2018-10-08] MEDS ORDERED: methylPREDNISolone 80 MG in SYRINGE 0 ML IV ONE (19:15)
[2018-10-08] MEDS: ENOXAPARIN INJ 40 MG/0.4 ML SYR SQ SCH (19:50)
[2018-10-08] MEDS: ACETAMINOPHEN 1,000 MG/100 ML VIAL IV SCH (19:51)
[2018-10-08] MEDS: FLUTICASONE/SALMETEROL 250/50 (ADVAIR) 14 PUFF/1 INHALER INH SCH (20:00)
[2018-10-08] MEDS: ATORVASTATIN 40 MG TAB PO SCH (20:02)
[2018-10-08] MEDS: CEROVITE ADV FORMULA TAB PO SCH (20:05)
[2018-10-08] MEDS: TRAZODONE HCL 50 MG TAB PO SCH (23:14)
[2018-10-09] MEDS: ACETAMINOPHEN 1,000 MG/100 ML VIAL IV SCH ×3 (03:07→21:28)
[2018-10-09] MEDS: methylPREDNISolone 40 MG in SYRINGE 0 ML IV SCH ×3 (03:07→18:43)
[2018-10-09] MEDS: ALBUT/IPRATROP 3MG/0.5MG NEB 3 ML VIAL NEB SCH ×4 (07:33→19:18)
[2018-10-09] MEDS: DOCUSATE SODIUM/SENNA 50/8.6MG TAB PO SCH (09:03)
[2018-10-09] MEDS: SERTRALINE HCL 100 MG TABLET PO SCH (09:03)
[2018-10-09] MEDS: MULTIVITAMIN TAB PO SCH (09:03)
[2018-10-09] MEDS: METOPROLOL TARTRATE 25 MG TAB PO SCH ×2 (09:03→21:34)
[2018-10-09] MEDS: CLOPIDOGREL BISULFATE 75 MG TAB PO SCH (09:03)
[2018-10-09] MEDS: BuPROPion XL 150 MG TABCR PO SCH (09:03)
[2018-10-09] MEDS: FLUTICASONE/SALMETEROL 250/50 (ADVAIR) 14 PUFF/1 INHALER INH SCH ×2 (09:04→21:28)
[2018-10-09] MEDS: POTASSIUM CHLORIDE 20 MEQ TABCR PO SCH (09:04)
[2018-10-09] MEDS: FUROSEMIDE 40 MG TAB PO SCH ×2 (09:04→21:32)
[2018-10-09] MEDS: LOSARTAN POTASSIUM 25 MG TAB PO SCH (09:04)
[2018-10-09] MEDS: ASPIRIN 81 MG ECTAB PO SCH (09:04)
[2018-10-09] MEDS: ENOXAPARIN INJ 40 MG/0.4 ML SYR SQ SCH (09:28)
--- NOTE | 2018-10-09 09:28 | Hospitalist Progress Note ---
Date of Service October 09, 2018 Assessment & Plan (1) Multiple fractures of ribs of both sides: Pt with fall from ladder approx 8-10 feet high yesterday. Since with bilateral rib pain, increased with inspiration and movement In ER vitals stable, pulse ox: 93-95% on RA. Hgb: 14, BUN: 12, Cr: 1.0. CT head: no acute changes. CT C Spine: no acute fractures. CT Chest: nondisplaced fractures of right 6,7,8 ribs and nondisplaced fractures of left 4- 8 ribs. No pneumothorax or pulmonary contusion, no thoracic injury. CT abd/pelvis: no acute abdominal or pelvis findings. Spoke with radiologist to have look at lumbar spine images also and reports does not appear to have acute fracture In ER was given 500ml NSS and morphine 4mg with some relief of pain Improving Continue Ofirmev IV, PRN oxycodone Will avoid NSAIDs as patient is taking Lasix and losartan Senokot-S and milk of magnesia ordered Continue incentive spirometry Monitor closely (2) COPD (chronic obstructive pulmonary disease): Hx COPD. Patient is in mild COPD exacerbation, secondary to suboptimal bronchodilator CT chest no pneumonia or infiltrates Improving Continue Solu-Medrol 40 mg every 8 hours Continue DuoNeb every 6 hours Advair Continue Spiriva Continue to monitor (3) HTN (hypertension): -continue losartan, metoprolol (4) Dyslipidemia: -continue atorvastatin (5) PVD (peripheral vascular disease): -continue ASA, plavix (6) Lymphedema: Reported chronic BLE edema and lymphedema Appears euvolemic -continue lasix (7) Anxiety and depression: -continue bupropion, sertraline DVT Prophylaxis -SCDs Lovenox subcutaneous Full Code as per discussion with pt Follows with Dr Steve at [place] [facility] for routine care Disposition pending Pain management for multiple fractures and management of CV exacerbation progress Anticipate discharge to home medically stable Subjective Follow-up for multiple rib fractures Seen sitting up in bed, having breakfast States pain is better today Also breathing is improved compared to yesterday, his some productive cough but no fevers or chills No other symptoms Physical Exam Vital Signs (Past 24 Hours): Last Vital Signs Temp 36.5 C 10/09/18 07:50 Pulse 78 10/09/18 07:50 Resp 16 10/09/18 07:50 BP 144/81 H 10/09/18 07:50 Pulse Ox 90 10/09/18 07:50 Physical Exam: General- oriented x 3, not in distress, speaks in sentences with no effort or accessory muscle use Eyes- anicteric Neck- no JVD Lungs-positive intermittent wheeze bilaterally, no crackles, good air entry bilaterally Heart- normal rate, regular rhythm; no murmurs Abdomen- normal bowel sounds, nondistended, soft, nontender Extremities- no pretibial edema, no calf tenderness Neuro- alert, oriented x 3; no gross focal neurologic deficits Skin- warm & dry (1) Multiple fractures of ribs of both sides Encounter type: initial encounter Fracture type: closed Qualified Code(s): S22.43XA - Multiple fractures of ribs, bilateral, initial encounter for closed fracture (2) COPD (chronic obstructive pulmonary disease) COPD type: unspecified COPD Qualified Code(s): J44.9 - Chronic obstructive pulmonary disease, unspecified
[2018-10-09 09:46] LABS: Basophils # (auto) 0.01 K/uL (0-0.2); Basophils % (auto) 0.1 %; Hematocrit (blood only) 42.6 % (42-52); Hemoglobin 14.5 g/dL (14.0-18.0); Immature Granulocytes # (auto) 0.04 K/uL (0.00-0.02); Immature Granulocytes % (auto) 0.3 %; Lymphocytes % (auto) 3.9 %; Mean Corpuscular Volume 95.3 fL (80-100); Monocytes % (auto) 3.1 %; Neutrophils # (auto) 11.93 K/uL (1.4-6.5); Neutrophils % (auto) 92.6 %; Platelet Count 219 K/uL (130-400); Red Blood Count 4.47 M/uL (4.7-6.1); White Blood Count 12.88 K/uL (4.8-10.8)
[2018-10-09] MEDS: OXYCODONE HCL IR 5 MG TAB (IMMEDIATE RELEASE) PO PRN (09:46)
[2018-10-09] MEDS: ACETAMINOPHEN 325 MG TAB PO PRN (09:47)
[2018-10-09 10:03] LABS: BUN Creatinine Ratio 14.2 (10-20); Calcium 8.8 mg/dl (8.5-10.1); Creatinine Clr Calc Pharmacy 98.1 ml/min; Est GFR (African American) 96.2; Potassium 3.8 mmol/L (3.5-5.1)
[2018-10-09] MEDS: ATORVASTATIN 40 MG TAB PO SCH (21:33)
[2018-10-09] MEDS: CEROVITE ADV FORMULA TAB PO SCH (21:34)
[2018-10-10] MEDS: TRAZODONE HCL 50 MG TAB PO SCH (01:06)
[2018-10-10] MEDS: methylPREDNISolone 40 MG in SYRINGE 0 ML IV SCH ×3 (01:06→19:27)
[2018-10-10] MEDS: ACETAMINOPHEN 1,000 MG/100 ML VIAL IV SCH ×2 (03:04→12:05)
[2018-10-10 06:06] LABS: Hemoglobin 13.6 g/dL (14.0-18.0); Immature Granulocytes # (auto) 0.06 K/uL (0.00-0.02); Immature Granulocytes % (auto) 0.4 %; Mean Corpuscular Hgb Conc 33.2 g/dL (32-36); Mean Corpuscular Volume 96.7 fL (80-100); Mean Platelet Volume 10.5 fL (7.4-10.4); Monocytes # (auto) 0.63 K/uL (0.11-0.59); Monocytes % (auto) 4.3 %; Neutrophils # (auto) 13.53 K/uL (1.4-6.5); Neutrophils % (auto) 91.3 %; Platelet Count 237 K/uL (130-400); RDW Standard Deviation 49.5 fL (36.4-46.3); Red Blood Count 4.24 M/uL (4.7-6.1); White Blood Count 14.82 K/uL (4.8-10.8)
[2018-10-10 06:36] LABS: BUN Creatinine Ratio 19.6 (10-20); Calcium 8.7 mg/dl (8.5-10.1); Creatinine Clr Calc Pharmacy 89.5 ml/min; Est GFR (African American) 86.1; Est GFR (Non-African American) 74.3
[2018-10-10] MEDS: ALBUT/IPRATROP 3MG/0.5MG NEB 3 ML VIAL NEB SCH ×4 (06:58→19:41)
[2018-10-10] MEDS: OXYCODONE HCL IR 5 MG TAB (IMMEDIATE RELEASE) PO PRN ×2 (07:37→14:42)
[2018-10-10] MEDS: FUROSEMIDE 40 MG TAB PO SCH ×2 (09:06→19:19)
[2018-10-10] MEDS: POTASSIUM CHLORIDE 20 MEQ TABCR PO SCH (09:06)
[2018-10-10] MEDS: ASPIRIN 81 MG ECTAB PO SCH (09:06)
[2018-10-10] MEDS: SERTRALINE HCL 100 MG TABLET PO SCH (09:06)
[2018-10-10] MEDS: FLUTICASONE/SALMETEROL 250/50 (ADVAIR) 14 PUFF/1 INHALER INH SCH (09:06)
[2018-10-10] MEDS: MULTIVITAMIN TAB PO SCH (09:07)
[2018-10-10] MEDS: METOPROLOL TARTRATE 25 MG TAB PO SCH (09:07)
[2018-10-10] MEDS: CLOPIDOGREL BISULFATE 75 MG TAB PO SCH (09:07)
[2018-10-10] MEDS: BuPROPion XL 150 MG TABCR PO SCH (09:07)
[2018-10-10] MEDS: LOSARTAN POTASSIUM 25 MG TAB PO SCH (09:07)
[2018-10-10] MEDS: ENOXAPARIN INJ 40 MG/0.4 ML SYR SQ SCH (09:07)
[2018-10-10] MEDS: DOCUSATE SODIUM/SENNA 50/8.6MG TAB PO SCH (09:08)
--- NOTE | 2018-10-10 17:07 | Hospitalist Progress Note ---
Date of Service October 10, 2018 Assessment & Plan (1) Multiple fractures of ribs of both sides: Pt with fall from ladder approx 8-10 feet high yesterday. Since with bilateral rib pain, increased with inspiration and movement In ER vitals stable, pulse ox: 93-95% on RA. Hgb: 14, BUN: 12, Cr: 1.0. CT head: no acute changes. CT C Spine: no acute fractures. CT Chest: nondisplaced fractures of right 6,7,8 ribs and nondisplaced fractures of left 4- 8 ribs. No pneumothorax or pulmonary contusion, no thoracic injury. CT abd/pelvis: no acute abdominal or pelvis findings. Spoke with radiologist to have look at lumbar spine images also and reports does not appear to have acute fracture In ER was given 500ml NSS and morphine 4mg with some relief of pain much improved given Ofirmev IV, PRN oxycodone avoided NSAIDs as patient is taking Lasix and losartan Senokot-S and milk of magnesia ordered Continue incentive spirometry Monitor closely (2) COPD (chronic obstructive pulmonary disease): Hx COPD. Patient is in mild COPD exacerbation CT chest no pneumonia or infiltrates improved significantly was hypoxic in the mid 80s weaned off oxygen transition from Solu-Medrol 40 mg every 8 hours to prednisone taper given DuoNeb every 6 hours, continue at home TID and q4h PRN started on Advair, continue on discharge Continue Spiriva ff up with PCP this week (3) HTN (hypertension): -continue losartan, metoprolol (4) Dyslipidemia: -continue atorvastatin (5) PVD (peripheral vascular disease): -continue ASA, plavix (6) Lymphedema: Reported chronic BLE edema and lymphedema Appears euvolemic -continue lasix (7) Anxiety and depression: -continue bupropion, sertraline DVT Prophylaxis -SCDs Lovenox subcutaneous Full Code as per discussion with pt Follows with Dr Steve at [facility] for routine care Disposition d/c home ff up with PCP in 3-5 days Subjective Follow-up for multiple rib fractures sitting up in bed, comfortable states he feels fine overall states rib pain continues to improve breathing and cough is much better, only scant white sputum denies fever/chills denies other symptoms states he is ready and would like to be discharged today Physical Exam Vital Signs (Past 24 Hours): Last Vital Signs Temp 36.6 C 03/17/19 15:48 Pulse 66 10/10/18 15:48 Resp 18 10/10/18 15:48 BP 148/99 H 10/10/18 15:48 Pulse Ox 90 10/10/18 15:48 Physical Exam: General- oriented x 3, not in distress, speaks in sentences with no effort or accessory muscle use Eyes- anicteric Neck- no JVD Lungs- faint wheeze b/l with some rhonchi good air entry bilaterally Heart- normal rate, regular rhythm; no murmurs Abdomen- normal bowel sounds, nondistended, soft, nontender Extremities- no pretibial edema, no calf tenderness Neuro- alert, oriented x 3; no gross focal neurologic deficits Skin- warm & dry Results & Data Laboratory Results Laboratory Results - last 24 hr 10/10/18 10/10/18 05:53 05:53 WBC 14.82 H RBC 4.24 L Hgb 13.6 L Hct 41.0 L MCV 96.7 MCH 32.1 MCHC 33.2 RDW Std Deviation 49.5 H RDW Coeff of Britton 14.0 Plt Count 237 MPV 10.5 H Immature Gran % (Auto) 0.4 Neut % (Auto) 91.3 Lymph % (Auto) 4.0 Turner % (Auto) 4.3 Eos % (Auto) 0.0 Baso % (Auto) 0.0 Immature Gran # (Auto) 0.06 H Neut # (Auto) 13.53 H Lymph # (Auto) 0.60 L Turner # (Auto) 0.63 H Eos # (Auto) 0.00 Baso # (Auto) 0.00 Sodium 139 Potassium 4.0 Chloride 104 Carbon Dioxide 29 Anion Gap 6.0 BUN 20 H D Creatinine 1.03 Est Cr Clr Drug Dosing 89.5 Est GFR ( Amer) 86.1 Est GFR (Non-Af Amer) 74.3 BUN/Creatinine Ratio 19.6 Glucose 171 H Calcium 8.7 (1) Multiple fractures of ribs of both sides Encounter type: initial encounter Fracture type: closed Qualified Code(s): S22.43XA - Multiple fractures of ribs, bilateral, initial encounter for closed fracture (2) COPD (chronic obstructive pulmonary disease) COPD type: unspecified COPD Qualified Code(s): J44.9 - Chronic obstructive pulmonary disease, unspecified
--- NOTE | 2018-10-10 17:39 | Discharge Summary ---
Date of Service October 10, 2018 Admission HPI Per Admitting Provider Pt is 68 y/o M with PMH COPD, HTN, dyslipidemia, PVD, chronic lower extremity edema and lymphedema, neuropathy, spinal stenosis, anxiety, depression presented to ER with complaint of fall yesterday. Patient states was on a ladder approximately 8-10 feet when he fell backwards. Patient states that head however denies any LOC. Patient states after fall had a hard time catching his breath for a couple minutes. He has bilateral rib pain with increased pain with inspiration. Doesn't feel more short of breath than usual. Patient also complains of posterior neck pain. Pt reports chronic low back pain. He was using his home meloxicam without much relief. Denies fever/chills, diaphoresis, N/V/D/C, ARENAS, dizziness, syncope, vision changes, extremity pain, loss ROM extremities, palpitations, cough, sore throat, choking, otalgia, rhinorrhea, abdominal pain, paresthesias, extremity weakness, increased extremity edema, rashes, dysuria, hematuria, urinary retention, loss control of bowel/bladder. Admission Exam Per Admitting Provider Vital Signs (Past 24 Hours): Last Vital Signs Temp 36.4 C L 10/07/18 10:50 Pulse 54 L 10/07/18 13:42 Resp 20 10/07/18 13:42 BP 139/85 10/07/18 13:42 Pulse Ox 93 10/07/18 13:42 Physical Exam: General: mild distress with deep inspiration and movement causing bilateral rib pain, obese Head: normocephalic, atraumatic Eyes: PERRL, EOM's intact, conjunctiva non-injected, anicteric ENT: hard of hearing, normal inspection external ears, nose, mucous membranes moist Neck: supple, trachea midline, non-tender to palpation, ROM intact Lungs: no respiratory distress, R: 20, 93-95% on RA, +scattered wheezing CV: RRR, no murmur Abd: normal BS, soft, non-tender Back: no spinous process tenderness to palpation, negative straight leg raising Ext: Bilateral upper extremities without tenderness and ROM intact. Bilateral lower extremities without tenderness and ROM intact, no calf tenderness, mild edema bilateral lower extremities. distal pulses intact, brisk capillary refill, sensation to light touch intact Neuro: A&O x 3, no focal deficits noted, normal affect Skin: warm, dry Principal Diagnosis MULTIPLE RIB FRACTURES; COPD EXACERBATION Discharge Exam Vital Signs (Past 24 Hours): Last Vital Signs Temp 36.6 C 10/10/18 15:48 Pulse 66 10/10/18 15:48 Resp 18 10/10/18 15:48 BP 148/99 H 10/10/18 15:48 Pulse Ox 90 10/10/18 15:48 Physical Exam: General- oriented x 3, not in distress, speaks in sentences with no effort or accessory muscle use Eyes- anicteric Neck- no JVD Lungs- faint wheeze b/l with some rhonchi good air entry bilaterally Heart- normal rate, regular rhythm; no murmurs Abdomen- normal bowel sounds, nondistended, soft, nontender Extremities- no pretibial edema, no calf tenderness Neuro- alert, oriented x 3; no gross focal neurologic deficits Skin- warm & dry Discharge Data Allergies Allergy/AdvReac Type Severity Reaction Status Date / Time lisinopril Allergy Unknown Rash Verified 10/07/18 14:40 Penicillins Allergy Unknown UNKNOWN Unverified 10/07/18 13:24 tramadol AdvReac Unknown Nausea Verified 10/07/18 14:40 Consultations 10/07/18 13:36 ED Decision to Admit Stat Ordered Studies 10/07/18 11:19 CT abd pelvis IV con only Stat CT OF THE ABDOMEN AND PELVIS WITH CONTRAST CLINICAL HISTORY: Fall. COMPARISON STUDY: None. TECHNIQUE: Following IV administration of 93 mL of Optiray-320, axial images of the abdomen and pelvis were obtained from the lung bases to the proximal femurs. Images were reviewed in the axial, sagittal, and coronal planes. IV contrast was administered without complication. Automated exposure control was utilized for the study. A dose lowering technique was utilized adhering to the principles of ALARA. FINDINGS: Please note that the chest CT will be reported separately. Acute nondisplaced fractures of multiple bilateral anterolateral ribs are better depicted on the chest CT. No hemoperitoneum or pneumoperitoneum is present. There is no evidence for traumatic injury to the liver, spleen, adrenal glands, kidneys or the pancreas. There is no peripancreatic or pericholecystic infiltration. Caliber and wall thickness of small and large bowel is normal. The appendix is unremarkable. Previous left acetabular internal fixation is noted. There is no acute fracture within the pelvis or hips. There is a right thigh lipoma. There are bilateral fat-containing inguinal hernias. Mild bladder wall thickening is probably chronic. The infrarenal abdominal aorta is ectatic, measuring 2.7 cm in caliber. There is moderate plaque. IMPRESSION: 1. No acute traumatic findings within the abdomen or pelvis. 2. Acute nondisplaced fractures of multiple bilateral anterolateral ribs which are better depicted on the chest CT. CT cervical spine wo con Stat IMPRESSION: No evidence of acute fracture or traumatic subluxation. CT chest w con Stat CT OF THE CHEST WITH IV CONTRAST CLINICAL HISTORY: Chest pain status post trauma COMPARISON STUDY: No previous studies for comparison. TECHNIQUE: Following the IV administration of 1611/and 22 (! 9360 09/27/2019. mL of Optiray-320, CT of the thorax was performed from the thoracic inlet to the lung bases. Images are reviewed in the axial, sagittal, and coronal planes. IV contrast was administered without complication. A dose lowering technique was u tilized adhering to the principles of ALARA. CT DOSE: 3641.42 mGy.cm FINDINGS: Thyroid: Imaged portions of the thyroid gland are normal in appearance. Thoracic aorta: There is mild ectasia of the ascending thoracic aorta which measures 38 mm. There are no findings to indicate an aortic dissection or rupture. Pulmonary vasculature: The pulmonary trunk is normal in caliber. There are no central filling defects identified to suggest pulmonary embolus. Note that this examination was not protocoled for the evaluation of pulmonary emboli. HEART: The heart is normal in size and configuration, without pericardial effusion. Lungs and pleural spaces: There are no significant pleural effusions. There are mild dependent atelectatic changes. There is no pneumothorax. There is no evidence for focal pulmonary contusion. Mediastinum: There is no mediastinal lymphadenopathy. Pita: Left hilar lymph nodes are the upper limits of normal in size. Axilla: There is no evidence of pathologic axillary lymphadenopathy Upper abdomen: Partially visualized upper abdominal viscera is within normal limits. Skeletal structures: There are acute nondisplaced fractures of the right sixth, seventh, and eighth ribs laterally. There are acute nondisplaced fractures of the left fourth through eighth ribs laterally IMPRESSION: 1. Acute nondisplaced fractures of the right sixth seventh and eighth ribs 2. Acute nondisplaced fractures of the left fourth through eighth ribs 3. No evidence of pneumothorax 4. No evidence of focal pulmonary contusion 5. No evidence of thoracic aortic injury CT head/brain wo con Stat FINDINGS: No intra or extra-axial mass lesions are visualized. There is no CT evidence of acute cortical infarction. There is no evidence of midline shift. There is no acute hemorrhage. No calvarial fractures are visualized. There are moderate white matter hypodensities likely on a small vessel basis. There is an old lacunar infarct within the left frontal lobe. There is no evidence of pathologic ventricular dilatation. There is no evidence of acute sinusitis IMPRESSION: No acute intracranial findings Hospital Course (1) Multiple fractures of ribs of both sides: Pt with fall from ladder approx 8-10 feet high yesterday. Since with bilateral rib pain, increased with inspiration and movement In ER vitals stable, pulse ox: 93-95% on RA. Hgb: 14, BUN: 12, Cr: 1.0. CT head: no acute changes. CT C Spine: no acute fractures. CT Chest: nondisplaced fractures of right 6,7,8 ribs and nondisplaced fractures of left 4- 8 ribs. No pneumothorax or pulmonary contusion, no thoracic injury. CT abd/pelvis: no acute abdominal or pelvis findings. Spoke with radiologist to have look at lumbar spine images also and reports does not appear to have acute fracture In ER was given 500ml NSS and morphine 4mg with some relief of pain much improved given Ofirmev IV, PRN oxycodone avoided NSAIDs as patient is taking Lasix and losartan Senokot-S and milk of magnesia ordered continue PRN [facility] already on Meloxicam PO daily (repeat bun/crea on ff up and monitor closely as patient also on Lasix) emphasized to use Incentive Spirometry as often as possible (2) COPD (chronic obstructive pulmonary disease): Patient is in mild COPD exacerbation CT chest no pneumonia or infiltrates improved significantly was hypoxic in the mid 80s weaned off oxygen transition from Solu-Medrol 40 mg every 8 hours to prednisone taper given DuoNeb every 6 hours, continue at home TID and q4h PRN started on Advair, continue on discharge Continue Spiriva ff up with PCP this week (3) HTN (hypertension): -continue losartan, metoprolol (4) Dyslipidemia: -continue atorvastatin (5) PVD (peripheral vascular disease): -continue ASA, plavix (6) Lymphedema: Reported chronic BLE edema and lymphedema Appears euvolemic -continue lasix (7) Anxiety and depression: -continue bupropion, sertraline Abnormal CT Findings (+) 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 full reports of CT Scan as above further work up and ff up as outpatient Follows with Dr Steve at [facility] for routine care Disposition d/c home advised patient to ff up with PCP in 3-5 days discussed plan of care with patient and his in detail they are comfortable and agreeable with plan of care all questions answered (8) Abnormal finding on CT scan: Total Time Total Time Spent Total Time Spent (In Minutes): 40 minutes Discharge Plan Discharge Items Patient Disposition: Home - Self-Care Reason For Visit: RIB FRACTURES Discharge Diagnosis: MULTIPLE RIB FRACTURES; COPD EXACERBATION Discharge Goals: Diagnostic testing and Therapeutic intervention Activity: As commented below Activity Comment: NO HEAVY EXERTION UNTIL RE-EVALUATED BY PRIMARY CARE PHYSICIAN Lifting: Wait until after follow-up appointment Exercise/Sports: Wait until after follow-up appointment Driving/Machine Use Comment: NO DRIVING UNTIL RE-EVALUATED BY PRIMARY CARE PHYSICIAN Non-emergency contact: Primary Care Provider Call non-emergency contact if: you have any medication questions, your symptoms worsen, your pain is not controlled, your pain is worsening, your pain is unusual for you, your pain is concerning for you and you have a fever Follow-up/Referrals: Malachi Steve [Primary Care Provider] - Diet: Heart Healthy Addtl Provider Instructions: PLEASE FOLLOW UP WITH PRIMARY CARE PHYSICIAN IN 3-[address] WHILE TAKING [place]. USE INCENTIVE SPIROMETRY OFTEN YOU CAN. ALWAYS STAY WELL HYDRATED. CALL PRIMARY CARE PHYSICIAN OR RETURN TO THE ER IMMEDIATELY IF WITH WORSENING OF SYMPTOMS, INCREASING PAIN, SHORTNESS OF BREATH, COUGH, FEVER/CHILLS. Prescriptions: New ipratropium-albuterol 0.5 mg-3 mg(2.5 mg base)/3 mL Solution For Nebulization 3 ml NEB TID 7 Days Qty: 105 RF: 0 hydrocodone-acetaminophen [[facility]] 5-325 mg tablet 1 tab PO Q6H PRN (Reason: pain) Qty: 10 RF: 0 fluticasone-salmeterol [Advair Diskus] 250-50 mcg/dose Blister With Device 1 puff Inhalation BID 30 Days Qty: 1 RF: 1 sennosides-docusate sodium [Senna with Docusate Sodium] 8.6-50 mg Tablet 1 tab PO QAM 7 Days Qty: 7 RF: 1 prednisone 10 mg tablet 10 mg PO UD Qty: 21 RF: 0 Continued meloxicam 15 mg Tablet 15 mg PO QAM RF: 0 aspirin 81 mg Tablet,Delayed Release (Dr/Ec) 81 mg PO DAILY RF: 0 furosemide [Lasix] 40 mg Tablet 40 mg PO BID RF: 0 atorvastatin 80 mg Tablet 40 mg PO HS RF: 0 trazodone 50 mg Tablet 50 mg PO HS RF: 0 sertraline 100 mg Tablet 200 mg PO QAM RF: 0 clopidogrel [Plavix] 75 mg Tablet 75 mg PO QAM RF: 0 ranitidine HCl 150 mg Tablet 150 mg PO BID RF: 0 losartan 25 mg Tablet 25 mg PO QAM RF: 0 albuterol sulfate [Ventolin HFA] 90 mcg/actuation Hfa Aerosol Inhaler 2 puff INHALATION QID PRN (Reason: Shortness Of Breath Or Wheezing) RF: 0 multivitamin Capsule 1 cap PO QAM RF: 0 bupropion HCl [Wellbutrin XL] 150 mg Tablet Extended Release 24 Hr 300 mg PO QAM RF: 0 metoprolol tartrate 25 mg Tablet 12.5 mg PO BID RF: 0 Spiriva with HandiHaler 18 mcg Capsule, W/Inhalation Device 1 cap INHALATION QAM RF: 0 PreserVision Lutein 226 mg-200 unit -5 mg-0.8 mg Capsule 1 cap PO BID RF: 0 potassium chloride 20 mEq Tablet Extended Release 20 meq PO QAM RF: 0 Stand-Alone Forms: [facility] Discharge Orders: Discharge Order (Routine); Ordered 10/10/18 Ordered By: Abraham Barnett Admission Data Admit Date/Time: 10/09/18 19:40 Attending Provider: Abraham Barnett Admit Provider: French Gomez Primary Care Provider: Malachi Steve Other Providers: French Gomez Service: Surgical Services
[2018-10-10] MEDS ORDERED: ALBUT/IPRATROP 3MG/0.5MG NEB 3 ML VIAL NEB SCH (18:45)
== END 2018-10-10 19:48 | disposition home or self-care (01) | DRG 184 ==
LOC: ED 10:44 → 3W 10:44